=== PATIENT | male | born 1945 | race Caucasian/White ===

== ENCOUNTER 2019-08-10 08:33 | Day surgery (SDC) | payer MEDICARE ==
--- NOTE | 2019-08-08 14:45 | HP ---
DATE OF SURGERY: 08/10/2019 ANTICIPATED PROCEDURE: Port placement. HISTORY OF PRESENT ILLNESS: The patient is requiring access, presents for port. PAST MEDICAL HISTORY: Lung disease. Heart disease. Diabetes. ALLERGIES: IODINE. TAPE. MEDICATIONS: Aricept. Eliquis. Aspirin. Lexapro. Potassium. PAST SURGICAL HISTORY: Colon cancer x2. Umbilical hernia. Pacemaker. Lung resection. SOCIAL HISTORY: Negative. FAMILY HISTORY: Negative. PHYSICAL EXAMINATION: VITAL SIGNS: Normal. CHEST: Clear. COR: Regular. ABDOMEN: Satisfactory. PLAN: Port placement.
[~2019-08-10 08:33] MED LIST: XYLOCAINE 1% HCL 20 ML MDV ONE
[2019-08-10] MEDS ORDERED: VERSED 5 MG/5 ML IV ONE (08:34)
[2019-08-10] MEDS ORDERED: DEMEROL 50 MG SDV IV ONE (08:34)
[2019-08-10] MEDS ORDERED: CEFAZOLIN 2 GM-D5W BAG** 2 GM/50 ML ML IV ONE (08:46)
[2019-08-10] MEDS ORDERED: Lactated Ringers 1,000 ML IV ONE (08:46)
[2019-08-10] MEDS ORDERED: Lactated Ringers 1,000 ML IV SCH (09:00)
[2019-08-10] MEDS ORDERED: CEFAZOLIN 2 GM-D5W BAG** 2 GM/50 ML ML IV SCH (09:00)
[2019-08-10 12:22] VITALS: BP 125/73; PULSE 85; O2SAT 98
--- NOTE | 2019-08-10 15:44 | OP ---
SURGERY DATE/TIME: 08/10/2019 1022 PREOPERATIVE DIAGNOSIS: Inadequate access for chemotherapy. POSTOPERATIVE DIAGNOSIS: Inadequate access for chemotherapy. PROCEDURE: Right tunnel port with fluoroscopic C-arm guidance. SURGEON: Eh Ko M.D. ANESTHESIA: IV sedation 15 minutes monitored. COMPLICATIONS: None. CONDITION: Stable. INDICATION: A patient requiring access. DESCRIPTION OF PROCEDURE: Oximetry kept over 90%. Comfort level satisfactory. Venipuncture obtained right subclavian. The port was fashioned with electrocautery, 1% lidocaine. Catheter assembled at 22 cm. Good aspiration of low pressure venous blood. Flushed and secured with 3-0 Prolene, 3-0 Vicryl, 4-0 Vicryl and Steri-Strips. Fluoro image showed the tip in the right atrium. There is no pneumothorax. Ready to use. The patient tolerated the procedure satisfactorily.
--- NOTE | 2019-08-11 07:37 | XRAY ---
Indication: Port placement. Intraoperative fluoroscopy was provided for 1 second. Single digital spot image submitted for interpretation demonstrates right Port-A-Cath with tip not included in the [id number]. Correlate with intraoperative findings/report.
== END 2019-08-10 12:30 | disposition home or self-care (01) ==
LOC: SDC 08:33
PROVIDERS: ATTEND Surgery
DX: Z95.828 Presence of other vascular implants and grafts (principal); Z85.038 Personal history of other malignant neoplasm of large intestine; J98.4 Other disorders of lung; I51.9 Heart disease, unspecified; E11.9 Type 2 diabetes mellitus without complications; Z79.01 Long term (current) use of anticoagulants; Z79.899 Other long term (current) drug therapy; Z95.0 Presence of cardiac pacemaker
CPT/HCPCS: 36558; 77001; 82962; C1788; J0690; J1642; J2175; J2250

== ENCOUNTER 2020-09-09 11:16 | Inpatient (IN) | payer MEDICARE ==
--- NOTE | 2020-09-09 11:46 | XRAY ---
Indication: Short of breath. Productive cough. Comparison: May 01, 2020. Portable chest demonstrates minimally worsening left mid to lower pleural thickening/effusion with stable left pacemaker and right Port-A-Cath. Remaining heart and right lung unremarkable. Bony thorax intact again with left 6 rib resection.
[2020-09-09 11:48] LABS: Absolute Neutrophil Ct (ANC) 6.18 (1.4-6.9); BASOPHIL % 0.3 % (0.0-0.4); Basophil (Absolute #) 0.03 (0-0.4); Eosinophil % 8.5 % (0.00-5.0); Eosinophil (Absolute #) 0.75 (0-0.5); Hematocrit 43.3 % (42-50); Hemoglobin 13.5 gm/dl (12.5-18.0); Lymphocyte (Absolute #) 1.26 (1.0-4.6); Lymphocytes % 14.3 % (24.0-44.0); Mean Cell Volume 86.4 fl (78-100); Mean Corpuscular Hemoglobin 26.9 pg (26-32); Mean Corpuscular Hgb Concent. 31.2 g/dl (32-36); Mean Platelet Volume 11.1 fl (7.5-11.0); Monocyte (Absolute #) 0.58 (0.0-1.3); Monocytes % 6.6 % (0.0-12.0); Neutrophil % 70.3 % (36.0-66.0); Platelet Count 129 K/mm3 (150-450); Red Blood Count 5.01 M/mm3 (4.1-5.6); Red Cell Distribution Width 16.7 % (11.5-14.0); White Blood Count 8.8 K/mm3 (4.0-10.5)
--- NOTE | 2020-09-09 12:04 | ERPHSYRPT ---
- History of Present Illness Time Seen by Provider: 09/09/20 11:30 Source: patient Exam Limitations: no limitations Patient Subjective Stated Complaint: SOB Triage Nursing Assessment: Patient brought into ED via EMS and transferred to bed per 2. Debbieetn A+O X3. Patient's skin pink, warm and dry. Patient complains of increased SOB for the past few days. Patient wears home O2 at 4 liters at all times. Patient complains of productive cough with thick, yellow sputum. lungs noted to have wheezing throughout. Patient denies pain or discomfort. Physician History: Patient is a 75-year-old male presents to our emergency department via EMS for evaluation of hypoxia. Patient has history of COPD. Patient currently on 4 L nasal cannula daily. Patient states that shortness of breath started a few days ago. Shortness of breath progressively worsened. Patient awoke early this morning with cough and shortness of breath. Nursing staff at [facility] assessed O2 saturation found to be 84%. Patient was treated with a DuoNeb. O2 sat increased to 97%. Nursing staff noted that patient just completed a course of Augmentin and Medrol Dosepak for the same. Patient states he has been experiencing a cough and shortness of breath worsened after coughing. Cough is productive of yellow sputum. Symptoms appear to be progressive. Symptoms are moderate in intensity. No specific worsening improving factors. No associated chest pain. No nausea or vomiting. No fever. Patient voices no other complaints or concerns at this time. Of note patient was Covid positive in June 2020. Patient is currently fully vaccinated against COVID-19. Timing/Duration: day(s) Severity: moderate Modifying Factors: Improves With: nothing Associated Symptoms: shortness of breath, cough, No nausea, No vomiting, No chest pain, No fever, No headaches, No loss of appetite, No malaise, No rash, No syncope, No seizure, No weakness Allergies/Adverse Reactions: Iodinated Contrast Media [IV Dye, Iodine Containing Contrast ] Allergy (Severe, Verified 09/09/20 11:25) Hives iopamidol [From [id number]] Allergy (Severe, Verified 09/09/20 11:25) Rash adhesive tape Allergy (Intermediate, Verified 09/09/20 11:25) Blisters Home Medications: Potassium Chloride [Klor-Con 10] 10 meq PO DAILY 06/24/16 [History] Albuterol Sulfate [Ventolin Hfa] 8 gm IH QIDPRN PRN 11/11/17 [History] Dulaglutide [Trulicity] 0.75 mg SQ WEEKLY 11/11/17 [History] Donepezil HCl 10 mg [Aricept 10 MG] 5 mg PO HS 06/06/19 [History] Escitalopram Oxalate 10 mg [Lexapro 10 MG] 10 mg PO DAILY 06/06/19 [History] Fluticasone/Umeclidin/Vilanter [Trelegy Ellipta 100-62.5-25] 1 each IH DAILY 06/06/19 [History] Insulin Glargine,Hum.rec.anlog [Touhayde Solostar] 300 unit SQ HS 06/06/19 [History] Ipratropium/Albuterol Sulfate [Iprat-Albut 0.5-3(2.5) mg/3 ml] 3 ml IH Q6HPRN PRN 06/06/19 [History] Magnesium Oxide 400 mg [Mag-Ox 400] 400 mg PO DAILY 06/06/19 [History] Multivitamin [Multivitamins] 1 each PO DAILY 07/31/19 [History] Insulin Glargine,Hum.rec.anlog [Toujeo Chang Solostar] 78 unit SQ HS 08/10/19 [History] Hx Tetanus, Diphtheria Vaccination/Date Given: (< 5 YR) Hx Influenza Vaccination/Date Given: Yes Hx Pneumococcal Vaccination/Date Given: No Immunizations Up to Date: Yes Travel Risk - International Travel Have you traveled outside of the country in past 3 weeks: No - Coronavirus Screening Are you exhibiting any of the following symptoms?: Yes Symptoms: Cough: New Onset, Shortness of Breath Close contact with a COVID-19 positive Pt in past 14-21 Days: No - Review of Systems Constitutional: No Symptoms, No Fever, No Chills Eyes: No Symptoms Ears, Nose, & Throat: No Symptoms Respiratory: No Symptoms, No Cough, No Dyspnea Cardiac: No Symptoms, No Chest Pain, No Edema, No Syncope Abdominal/Gastrointestinal: No Symptoms, No Abdominal Pain, No Nausea, No Vomiting, No Diarrhea Genitourinary Symptoms: No Symptoms, No Dysuria Musculoskeletal: No Symptoms, No Back Pain, No Neck Pain Skin: No Symptoms, No Rash Neurological: No Symptoms, No Dizziness, No Focal Weakness, No Sensory Changes Psychological: No Symptoms Endocrine: No Symptoms Hematologic/Lymphatic: No Symptoms Immunological/Allergic: No Symptoms All Other Systems: Reviewed and Negative - Past Medical History Pertinent Past Medical History: Yes Neurological History: Peripheral Neuropathy ENT History: Cataracts Cardiac History: Coronary Artery Disease, Congestive Heart Failure, High Cholesterol, Hypertension Respiratory History: Sleep Apnea, CHF, COPD, Asthma, Bronchitis, Emphysema, Pneumonia Endocrine Medical History: Diabetes Type II Musculoskeletal History: Other GI Medical History: Hemorrhoids, Colorectal Cancer History: No Pertinent History Psycho-Social History: Depression Male Reproductive Disorders: Prostate Problems Other Medical History: hx osteomyelitis. pacemaker. heart stent. left lung collapse- infection with chest tubes,polyp removed with clip placed and gastrophoresis,anemia, - Past Surgical History Past Surgical History: Yes Neuro Surgical History: No Pertinent History Cardiac: Vascular Surgery, Cardiac Stent, Cardiac Catheterization, Pacemaker Respiratory: Other Gastrointestinal: Colon Resection, Hernia Repair Genitourinary: No Pertinent History Musculoskeletal: No Pertinent History Male Surgical History: No Pertinent History Other Surgical History: left eye laser, vein burn left leg, fluid removed from left lung,cataract removed from rt eye,hx. prostate problem,hx colon cancer,upperscope and colonoscopy - Social History Smoking Status: Former smoker How long have you smoked: 38 Exposure to second hand smoke: No Drug Use: none Patient Lives Alone: Yes ([facility]) - Nursing Vital Signs Nursing Vital Signs: Initial Vital Signs Temperature 98.1 F 09/09/20 11:27 Pulse Rate 89 09/09/20 11:27 Respiratory Rate 24 09/09/20 11:27 Blood Pressure 148/70 09/09/20 11:27 O2 Sat by Pulse Oximetry 100 09/09/20 11:27 Pain Scale Pain Intensity 0 - Physical Exam General Appearance: no apparent distress, alert Eye Exam: PERRL/EOMI, eyes nml inspection Ears, Nose, Throat Exam: normal ENT inspection, TMs normal, pharynx normal, moist mucous membranes Neck Exam: normal inspection, non-tender, supple, full range of motion Respiratory Exam: normal breath sounds, wheezing, other (Wheezing observed throughout both lung pedroza.), No respiratory distress, No accessory muscle use Cardiovascular Exam: regular rate/rhythm, normal heart sounds, normal peripheral pulses Gastrointestinal/Abdomen Exam: soft, normal bowel sounds, No tenderness, No mass Back Exam: normal inspection, normal range of motion, No CVA tenderness, No vertebral tenderness Extremity Exam: normal inspection, normal range of motion, pelvis stable Neurologic Exam: alert, oriented x 3, cooperative, normal mood/affect, nml cerebellar function, nml station & gait, sensation nml, No motor deficits Skin Exam: normal color, warm, dry, No rash Lymphatic Exam: No adenopathy SpO2 Interpretation: normal SpO2: 99 O2 Delivery: Room Air - Course Nursing assessment & vital signs reviewed: Yes EKG Interpreted by Me: RATE (89), Sinus Rhythm, NORMAL AXIS, LAFB, NORMAL INTERVALS, Right Bundle Branch Block - Radiology Exams Chest X-ray Interpretation: Teleradiologist Report (No pneumonia, pleural thickening versus pleural effusion.) Ordered Tests: Active Orders 24 hr Category Date Time Status Knife Blade Polisher STAT Care 09/09/20 11:26 Active EKG-ER Only STAT Care 09/09/20 11:25 Active IV Insertion STAT Care 09/09/20 11:25 Active Pulse Oximetry (ED) STAT Care 09/09/20 11:25 Active CHEST 1 VIEW (PORTABLE) Stat Exams 09/09/20 11:26 Completed BLOOD CULTURE Stat Lab 09/09/20 12:45 Received CBC W DIFF Stat Lab 09/09/20 11:26 Completed CMP Stat Lab 09/09/20 11:26 Completed CULTURE,URINE Stat Lab 09/09/20 11:26 Received D-DIMER QUANTITATIVE Stat Lab 09/09/20 15:24 Completed MAGNESIUM Stat Lab 09/09/20 11:26 Completed NT PRO BNP Stat Lab 09/09/20 11:26 Completed TROPONIN Q3H Lab 09/09/20 11:26 Completed TROPONIN Q3H Lab 09/09/20 14:51 Completed TROPONIN Q3H Lab 09/09/20 17:30 Ordered TROPONIN Q3H Lab 09/09/20 20:30 Ordered TROPONIN Q3H Lab 09/09/20 23:30 Ordered UA W/RFX UR CULTURE Stat Lab 09/09/20 11:26 Completed Respiratory MDI UD RT 09/09/20 13:55 Active Respiratory Therapy Assessment DAILY RT 09/09/20 13:50 Active Transfer Order Routine Transfer 09/09/20 Ordered Medication Summary Generic Name Dose Route Start Last Admin Trade Name Freq PRN Reason Stop Dose Admin Albuterol Sulfate 4 puff 09/09/20 12:49 09/09/20 13:30 Ventolin Common Canister IH 10/09/20 12:48 4 puff Q4H PRN PRN Administration SHORTNESS OF BREATH/WHEEZING Discontinued Medications Generic Name Dose Route Start Last Admin Trade Name Freq PRN Reason Stop Dose Admin Azithromycin 500 mg in 250 mls @ 250 mls/hr 09/09/20 14:58 09/09/20 16:10 Zithromax 500 Mg/ 250 Ml Nacl Premix IV 09/09/20 15:57 250 mls/hr STAT STA 250 mls/hr Administration Ceftriaxone Sodium/Dextrose 2 g in 50 mls @ 100 mls/hr 09/09/20 14:58 09/09/20 16:58 Rocephin 2 Gm-D5w 50ml Bag IV 09/09/20 15:27 Infused STAT STA Infusion Ceftriaxone Sodium/Dextrose Confirm 09/09/20 15:39 Rocephin 2 Gm-D5w 50ml Bag Administered 09/09/20 15:40 Dose 2 g in 50 mls @ ud IV .STK-MED ONE Azithromycin Confirm 09/09/20 16:07 Zithromax 500 Mg/ 250 Ml Nacl Premix Administered 09/09/20 16:08 Dose 500 mg in 250 mls @ ud IV .STK-MED ONE Methylprednisolone Sodium Succinate 125 mg 09/09/20 12:18 09/09/20 12:24 Solu-Medrol 125 Mg IV 09/09/20 12:19 125 mg STAT ONE Administration Methylprednisolone Sodium Succinate Confirm 09/09/20 12:23 Solu-Medrol 125 Mg Administered 09/09/20 12:24 Dose 125 mg .ROUTE .STK-MED ONE Lab/Rad Data: Laboratory Result Diagrams 09/09/20 11:26 09/09/20 11:26 Laboratory Results 09/09/20 09/09/20 09/09/20 Range/Units 15:40 15:24 14:51 WBC (4.0-10.5) K/mm3 RBC (4.1-5.6) M/mm3 Hgb (12.5-18.0) gm/dl Hct (42-50) % MCV (78-100) fl MCH (26-32) pg MCHC (32-36) g/dl RDW (11.5-14.0) % Plt Count (150-450) K/mm3 MPV (7.5-11.0) fl Gran % (36.0-66.0) % Eos # (Auto) (0-0.5) Absolute Lymphs (auto) (1.0-4.6) Absolute Monos (auto) (0.0-1.3) Lymphocytes % (24.0-44.0) % Monocytes % (0.0-12.0) % Eosinophils % (0.00-5.0) % Basophils % (0.0-0.4) % Absolute Granulocytes (1.4-6.9) Basophils # (0-0.4) D-Dimer 608 H* (215-500) ng/mL Sodium (137-145) mmol/L Potassium (3.5-5.1) mmol/L Chloride (98-107) mmol/L Carbon Dioxide (22-30) mmol/L Anion Gap (5-15) MEQ/L BUN (9-20) mg/dL Creatinine (0.66-1.25) mg/dL Estimated GFR ML/MIN Glucose (74-106) mg/dL Calcium (8.4-10.2) mg/dL Magnesium (1.6-2.3) mg/dL Total Bilirubin (0.2-1.3) mg/dL AST (17-59) U/L ALT (0-50) U/L Alkaline Phosphatase (38-126) U/L Troponin I < 0.012 (0.000-0.034) ng/mL NT-Pro-B Natriuret Pep (0-900) pg/mL Serum Total Protein (6.3-8.2) g/dL Albumin (3.5-5.0) g/dL Urine Color (YELLOW) Urine Appearance (CLEAR) Urine pH (5-6) Ur Specific Callery (1.005-1.025) Urine Protein (Negative) Urine Ketones (NEGATIVE) Urine Blood (0-5) Clyde/ul Urine Nitrite (NEGATIVE) Urine Bilirubin (NEGATIVE) Urine Urobilinogen (0-1) mg/dL Ur Leukocyte Esterase (NEGATIVE) Urine WBC (Auto) (0-5) /HPF Urine RBC (Auto) (0-2) /HPF U Epithel Cells (Auto) (FEW) /HPF Urine Bacteria (Auto) (NEGATIVE) /HPF Urine Mucus (Auto) (NEGATIVE) /HPF Urine Culture Reflexed (NO) Urine Glucose (NEGATIVE) mg/dL Influenza Type A Ag NEGATIVE (NEGATIVE) Influenza Type B Ag NEGATIVE (NEGATIVE) RSV (PCR) NEGATIVE (Negative) SARS-CoV-2 (PCR) NEGATIVE (NEGATIVE) 09/09/20 09/09/20 09/09/20 Range/Units 11:26 11:26 11:26 WBC (4.0-10.5) K/mm3 RBC (4.1-5.6) M/mm3 Hgb (12.5-18.0) gm/dl Hct (42-50) % MCV (78-100) fl MCH (26-32) pg MCHC (32-36) g/dl RDW (11.5-14.0) % Plt Count (150-450) K/mm3 MPV (7.5-11.0) fl Gran % (36.0-66.0) % Eos # (Auto) (0-0.5) Absolute Lymphs (auto) (1.0-4.6) Absolute Monos (auto) (0.0-1.3) Lymphocytes % (24.0-44.0) % Monocytes % (0.0-12.0) % Eosinophils % (0.00-5.0) % Basophils % (0.0-0.4) % Absolute Granulocytes (1.4-6.9) Basophils # (0-0.4) D-Dimer (215-500) ng/mL Sodium 136 L (137-145) mmol/L Potassium 3.9 (3.5-5.1) mmol/L Chloride 102 (98-107) mmol/L Carbon Dioxide 31 H (22-30) mmol/L Anion Gap 7.8 (5-15) MEQ/L BUN 14 (9-20) mg/dL Creatinine 0.69 (0.66-1.25) mg/dL Estimated GFR > 60.0 ML/MIN Glucose 149 H (74-106) mg/dL Calcium 8.4 (8.4-10.2) mg/dL Magnesium 2.0 (1.6-2.3) mg/dL Total Bilirubin 0.50 (0.2-1.3) mg/dL AST 18 (17-59) U/L ALT 9 (0-50) U/L Alkaline Phosphatase 124 (38-126) U/L Troponin I < 0.012 (0.000-0.034) ng/mL NT-Pro-B Natriuret Pep 94.0 (0-900) pg/mL Serum Total Protein 6.2 L (6.3-8.2) g/dL Albumin 3.5 (3.5-5.0) g/dL Urine Color YELLOW (YELLOW) Urine Appearance SLIGHTLY CLOUDY (CLEAR) Urine pH 5.0 (5-6) Ur Specific Callery 1.020 (1.005-1.025) Urine Protein 100 (Negative) Urine Ketones NEGATIVE (NEGATIVE) Urine Blood NEGATIVE (0-5) Clyde/ul Urine Nitrite NEGATIVE (NEGATIVE) Urine Bilirubin NEGATIVE (NEGATIVE) Urine Urobilinogen NEGATIVE (0-1) mg/dL Ur Leukocyte Esterase SMALL (NEGATIVE) Urine WBC (Auto) 6-10 (0-5) /HPF Urine RBC (Auto) 6-10 (0-2) /HPF U Epithel Cells (Auto) RARE (FEW) /HPF Urine Bacteria (Auto) RARE (NEGATIVE) /HPF Urine Mucus (Auto) SLIGHT (NEGATIVE) /HPF Urine Culture Reflexed YES (NO) Urine Glucose 50 (NEGATIVE) mg/dL Influenza Type A Ag (NEGATIVE) Influenza Type B Ag (NEGATIVE) RSV (PCR) (Negative) SARS-CoV-2 (PCR) (NEGATIVE) 09/09/20 Range/Units 11:26 WBC 8.8 (4.0-10.5) K/mm3 RBC 5.01 (4.1-5.6) M/mm3 Hgb 13.5 (12.5-18.0) gm/dl Hct 43.3 (42-50) % MCV 86.4 (78-100) fl MCH 26.9 (26-32) pg MCHC 31.2 L (32-36) g/dl RDW 16.7 H (11.5-14.0) % Plt Count 129 L (150-450) K/mm3 MPV 11.1 H (7.5-11.0) fl Gran % 70.3 H (36.0-66.0) % Eos # (Auto) 0.75 H (0-0.5) Absolute Lymphs (auto) 1.26 (1.0-4.6) Absolute Monos (auto) 0.58 (0.0-1.3) Lymphocytes % 14.3 L (24.0-44.0) % Monocytes % 6.6 (0.0-12.0) % Eosinophils % 8.5 H (0.00-5.0) % Basophils % 0.3 (0.0-0.4) % Absolute Granulocytes 6.18 (1.4-6.9) Basophils # 0.03 (0-0.4) D-Dimer (215-500) ng/mL Sodium (137-145) mmol/L Potassium (3.5-5.1) mmol/L Chloride (98-107) mmol/L Carbon Dioxide (22-30) mmol/L Anion Gap (5-15) MEQ/L BUN (9-20) mg/dL Creatinine (0.66-1.25) mg/dL Estimated GFR ML/MIN Glucose (74-106) mg/dL Calcium (8.4-10.2) mg/dL Magnesium (1.6-2.3) mg/dL Total Bilirubin (0.2-1.3) mg/dL AST (17-59) U/L ALT (0-50) U/L Alkaline Phosphatase (38-126) U/L Troponin I (0.000-0.034) ng/mL NT-Pro-B Natriuret Pep (0-900) pg/mL Serum Total Protein (6.3-8.2) g/dL Albumin (3.5-5.0) g/dL Urine Color (YELLOW) Urine Appearance (CLEAR) Urine pH (5-6) Ur Specific Callery (1.005-1.025) Urine Protein (Negative) Urine Ketones (NEGATIVE) Urine Blood (0-5) Clyde/ul Urine Nitrite (NEGATIVE) Urine Bilirubin (NEGATIVE) Urine Urobilinogen (0-1) mg/dL Ur Leukocyte Esterase (NEGATIVE) Urine WBC (Auto) (0-5) /HPF Urine RBC (Auto) (0-2) /HPF U Epithel Cells (Auto) (FEW) /HPF Urine Bacteria (Auto) (NEGATIVE) /HPF Urine Mucus (Auto) (NEGATIVE) /HPF Urine Culture Reflexed (NO) Urine Glucose (NEGATIVE) mg/dL Influenza Type A Ag (NEGATIVE) Influenza Type B Ag (NEGATIVE) RSV (PCR) (Negative) SARS-CoV-2 (PCR) (NEGATIVE) - Progress Progress: improved Progress Note: 09/09/20 17:07 Patient reassessed. He feels much better. Wheezing significantly improved. Patient has no labored breathing at this time. Chest x-ray negative for acute pathology. Case discussed with Dr. Cook covering Dr. Espana. Dr. Cook accepts admission to observation. However she request to place patient under Dr. Espana as accepting physician. Plan of care discussed with patient. He agrees to admission at [facility] for further evaluation. Discussed with : Kip Will see patient in: hospital (observation) Counseled pt/family regarding: lab results, diagnosis, rad results - Departure Departure Disposition: Observation Clinical Impression: Hypoxia, Productive cough, SOB (shortness of breath), Wheezing, Pleural effusion, COPD exacerbation, Thrombocytopenia Condition: Stable Critical Care Time: No Referrals: CORIN RAVI [Primary Care Provider] - Instructions: Chronic Obstructive Pulmonary Disease
[2020-09-09 12:09] LABS: ALBUMIN 3.5 g/dL (3.5-5.0); ALKALINE PHOSPHATASE 124 U/L (38-126); ANION GAP 7.8 MEQ/L (5-15); BLOOD UREA NITROGEN 14 mg/dL (9-20); CHLORIDE 102 mmol/L (98-107); Calcium 8.4 mg/dL (8.4-10.2); Carbon Dioxide 31 mmol/L (22-30); Creatinine 1 0.69 mg/dL (0.66-1.25); EST GLOMERULAR FILTRATION RATE > 60.0 ML/MIN; Glucose 149 mg/dL (74-106); Potassium 3.9 mmol/L (3.5-5.1); SGOT/AST 18 U/L (17-59); SGPT/ALT 9 U/L (0-50); SODIUM 136 mmol/L (137-145); Total Protein 6.2 g/dL (6.3-8.2)
[2020-09-09] MEDS ORDERED: solu-MEDROL 125 MG IV ONE (12:18)
[2020-09-09 12:20] LABS: Appearance SLIGHTLY CLOUDY (CLEAR); Bacteria RARE /HPF (NEGATIVE); Bilirubin NEGATIVE (NEGATIVE); Blood NEGATIVE Ery/ul (0-5); Epithelial Cells RARE /HPF (FEW); Glucose 50 mg/dL (NEGATIVE); Ketones NEGATIVE (NEGATIVE); Leukocyte Esterase SMALL (NEGATIVE); Mucus SLIGHT /HPF (NEGATIVE); Nitrite NEGATIVE (NEGATIVE); Protein,Urine Dip 100 (Negative); Urobilinogen NEGATIVE mg/dL (0-1)
[2020-09-09] MEDS ORDERED: solu-MEDROL 125 MG ONE (12:23)
[2020-09-09] MEDS ORDERED: VENTOLIN COMMON CANISTER IH PRN (12:49)
[2020-09-09] MEDS ORDERED: Zithromax 500 MG/ 250 ML NaCl Premix 500 MG/250 ML IVPB IV STA (14:58)
[2020-09-09] MEDS ORDERED: ROCEPHIN 2 Gm-D5w 50ML BAG** 2 G/50 ML IVPB IV STA (14:58)
[2020-09-09] MEDS ORDERED: ROCEPHIN 2 Gm-D5w 50ML BAG** 2 G/50 ML IVPB IV ONE (15:39)
[2020-09-09] MEDS ORDERED: Zithromax 500 MG/ 250 ML NaCl Premix 500 MG/250 ML IVPB IV ONE (16:07)
[2020-09-09 16:19] LABS: INFLUENZA A NEGATIVE (NEGATIVE); INFLUENZA B NEGATIVE (NEGATIVE); RESPIRATORY SYNCTIAL VIRUS NEGATIVE (Negative)
[2020-09-09] MEDS ORDERED: DUONEB 0.5-3 MG/3 ml Neb IH ONE (17:43)
[2020-09-09] MEDS: DUONEB 0.5-3 MG/3 ml Neb IH SCH (17:47)
[2020-09-09] MEDS ORDERED: PROVENTIL 2.5 MG/3 ML NEB IH SCH (19:00)
[2020-09-09] MEDS: solu-MEDROL 125 MG IV SCH ×2 (19:58→23:48)
[2020-09-09] MEDS ORDERED: TYLENOL 325 MG PO PRN (21:50)
[2020-09-09] MEDS ORDERED: MILK OF MAGNESIA 30 ML PO PRN (21:51)
[2020-09-09] MEDS ORDERED: Lantus Insulin SQ SCH (22:00)
[2020-09-09] MEDS: FEOSOL 325 MG PO SCH (22:04)
[2020-09-09] MEDS: Aricept 10 MG PO SCH (22:04)
[2020-09-09] MEDS: ELIQUIS 2.5 MG TABLET PO SCH (22:04)
[2020-09-09] MEDS: HUMULIN R SQ PRN (22:05)
[2020-09-10] MEDS: solu-MEDROL 125 MG IV SCH ×4 (05:21→23:02)
[2020-09-10 05:39] LABS: ALBUMIN 3.5 g/dL (3.5-5.0); ALKALINE PHOSPHATASE 132 U/L (38-126); ANION GAP 12.4 MEQ/L (5-15); BLOOD UREA NITROGEN 18 mg/dL (9-20); CHLORIDE 97 mmol/L (98-107); Calcium 8.5 mg/dL (8.4-10.2); Carbon Dioxide 31 mmol/L (22-30); Creatinine 1 0.62 mg/dL (0.66-1.25); EST GLOMERULAR FILTRATION RATE > 60.0 ML/MIN; Glucose 280 mg/dL (74-106); Potassium 4.2 mmol/L (3.5-5.1); SGOT/AST 17 U/L (17-59); SGPT/ALT 10 U/L (0-50); SODIUM 135 mmol/L (137-145); Total Protein 6.3 g/dL (6.3-8.2)
[2020-09-10] MEDS ORDERED: PATIENT OWN MEDICATION IH SCH ×2 (07:00→10:00)
[2020-09-10] MEDS ORDERED: DUONEB 0.5-3 MG/3 ml Neb IH ONE (07:19)
[2020-09-10] MEDS: DUONEB 0.5-3 MG/3 ml Neb IH SCH ×4 (07:20→18:32)
[2020-09-10] MEDS: PATIENT OWN MEDICATION IH SCH (07:20)
[2020-09-10] MEDS: HUMULIN R SQ PRN ×4 (07:57→21:22)
--- NOTE | 2020-09-10 08:49 | PCM.HP ---
History of Present Illness - Chief Complaint Chief Complaint: COPD exacerbation History of Present Illness: is a 75 year old male pt of Dr. Zuniga with PMHx COPD, HTN, chronic hypoxemic respiratory failure, diabetes mellitus, and mild cognitive impairment who was admitted through ER with COPD exacerbation. He is at [facility] for rehab, recently finisehd augmentin and medrol dosepak for COPD exacerbation, and had 3d of increased SOB and cough productive of yellow sputum. He was also covid + in Jun 2020, but his chart notes he is fully vaccinated. Pt has hx of colon cancer x 2. He has a port-A-cath apparently just due to frequent hospital admissions. Pacemaker approx 2-[address] Novoa and is on Eliquis but denies hx of DVT/afib. In ER his CXR showed minimally worsening L mid-lower lobe pleural thickening/effusion. His d-dimer was 608 but he is allergic to IV dye (and as mentioned is on Eliquis) so no CTA chest was done. Troponins neg x 3. Flu and covid negative. Today he states he is feeling much better, only a little short of breath with trips to the bathroom. Mercedes po. - Review of Systems Respiratory: Cough, Short Of Breath, Wheezing Cardiac: Edema (intermittent, LE) Abdominal/Gastrointestinal: Diarrhea (resolved), Melena (intermittently) Neurological: Dizziness (lightheaded at times), Other (syncope 9 mo ago which was worked up) Psychological: No Depression, No Suicidal Ideations Hematologic/Lymphatic: No Blood Clots Medications & Allergies Home Medications: Home Medication List Potassium Chloride [Klor-Con 10] 10 meq PO DAILY 12/20/15 [History Confirmed 09/09/20] Donepezil HCl 10 mg [Aricept 10 MG] 10 mg PO HS 06/06/19 [History Confirmed 09/09/20] Escitalopram Oxalate 10 mg [Lexapro 10 MG] 20 mg PO DAILY 06/06/19 [History Confirmed 09/09/20] Acetaminophen 325 mg [Tylenol 325 mg] 650 mg PO Q4HPRN PRN 09/09/20 [History Confirmed 09/09/20] Albuterol Sulfate [Albuterol Sulfate Hfa] 2 puff IH QID 09/09/20 [History Confirmed 09/09/20] Albuterol/Ipratropium 3ml Neb* [DUONEB 0.5-3 MG/3 ml Neb] 1 vial IH BID 09/09/20 [History Confirmed 09/09/20] Apixaban [Eliquis] 5 mg PO BID 09/09/20 [History Confirmed 09/09/20] Cholestyramine/Aspartame [Cholestyramine Light Packet] 4 gm PO DAILY 09/09/20 [History Confirmed 09/09/20] Ferrous Sulfate 325 mg [Feosol 325 mg] 325 mg PO BID 09/09/20 [History Confirmed 09/09/20] Insulin Aspart [Novolog] 100 unit SQ UD 09/09/20 [History Confirmed 09/09/20] Insulin Glargine,Hum.rec.anlog [Basaglar Kwikpen U-100] 23 unit SQ QHS 09/09/20 [History Confirmed 09/09/20] Magnesium Hydroxide 30 ml [Milk of Magnesia 30 ml] 30 ml PO UD PRN 09/09/20 [History Confirmed 09/09/20] Memantine HCl 5 mg [Namenda 5 MG] 5 mg PO DAILY 09/09/20 [History Confirmed 09/09/20] Nystatin 100,000 unit TOP BID 09/09/20 [History Confirmed 09/09/20] Sodium Phosphate,Pine-Dibasic [Fleet Enema] 133 ml RC UD PRN 09/09/20 [History Confirmed 09/09/20] Allergies/Adverse Reactions: Allergies Allergy/AdvReac Type Severity Reaction Status Date / Time Iodinated Contrast Media Allergy Severe Hives Verified 09/09/20 18:15 [IV Dye, Iodine Containing Contrast ] iopamidol [From Isovue-128] Allergy Severe Rash Verified 09/09/20 18:15 adhesive tape Allergy Intermediate Blisters Verified 09/09/20 18:15 - Past Medical History Past Medical History: Yes Neurological History: Dementia, Peripheral Neuropathy, TIA ENT History: Cataracts Cardiac History: Coronary Artery Disease, Congestive Heart Failure, High Cholesterol, Hypertension Respiratory History: Sleep Apnea, CHF, COPD, Asthma, Bronchitis, Emphysema, Pneumonia Endocrine Medical History: Diabetes Type II Musculoskelatal History: Other GI Medical History: Hemorrhoids, Colorectal Cancer History: No Pertinent History Pyscho-Social History: Anxiety, Depression Male Reproductive Disorders: Prostate Problems Comment: hx osteomyelitis. pacemaker. heart stent. left lung collapse- infection with chest tubes,polyp removed with clip placed and gastrophoresis,anemia, - Past Surgical History Past Surgical History: Yes Neuro Surgical History: No Pertinent History Cardiac History: Vascular Surgery, Cardiac Stent, Cardiac Catheterization, Pacemaker Respiratory Surgery: Other GI Surgical History: Colon Resection, Hernia Repair Genitourinary Surgical Hx: No Pertinent History Musculskeletal Surgical Hx: No Pertinent History Male Surgical History: No Pertinent History Other Surgical History: left eye laser, vein burn left leg, fluid removed from left lung,upperscope and colonoscopy, port placement - Social History Smoking Status: Former smoker How long have you smoked: 38 Exposure to second hand smoke: No Alcohol: None Drug Use: none - Physical Exam Vital Signs: Vital Signs - 24 hr Temp Pulse Resp BP Pulse Ox 09/10/20 08:00 97.7 F 88 21 129/58 95 09/10/20 07:23 86 16 94 L 09/10/20 04:00 98 F 89 23 144/64 96 09/10/20 00:00 98.3 F 95 H 22 145/67 97 09/09/20 20:43 92 H 20 96 09/09/20 20:00 98.4 F 96 H 18 151/69 97 09/09/20 18:31 98.0 F 95 H 20 154/80 96 09/09/20 17:48 95 H 20 96 09/09/20 17:09 99 09/09/20 17:00 98.0 F 99 H 20 154/80 98 09/09/20 16:55 92 H 18 154/70 97 09/09/20 15:28 90 17 163/85 99 09/09/20 14:38 89 21 159/75 98 09/09/20 13:30 86 16 95 09/09/20 13:10 82 21 138/68 93 L 09/09/20 12:28 87 28 H 159/80 100 09/09/20 11:44 99 09/09/20 11:27 98.1 F 89 24 148/70 100 Oxygen-Last 24 hours Oxygen Flowrate (L/min)-RT 4 General Appearance: no apparent distress, alert Neurologic Exam: oriented x 3, cooperative Eye Exam: eyes nml inspection Ears, Nose, Throat Exam: moist mucous membranes Neck Exam: normal inspection, non-tender, No lymphadenopathy Respiratory Exam: lungs clear, diminished breath sounds (good air exchange), prolonged expirations, No crackles/rales, No rhonchi, No wheezing Cardiovascular Exam: regular rate/rhythm, normal heart sounds, No murmur Gastrointestinal/Abdomen Exam: soft, normal bowel sounds, No tenderness, No distention, No mass, No guarding, No rebound Back Exam: normal inspection, No CVA tenderness, No rash Extremity Exam: normal inspection, No pedal edema, No swelling Skin Exam: normal color, warm, dry, No rash Results - Labs Lab/Micro Results: Lab Results-Last 24 Hours 09/09/20 09/09/20 09/09/20 Range/Units 11:26 11:26 11:26 WBC 8.8 (4.0-10.5) K/mm3 RBC 5.01 (4.1-5.6) M/mm3 Hgb 13.5 (12.5-18.0) gm/dl Hct 43.3 (42-50) % MCV 86.4 (78-100) fl MCH 26.9 (26-32) pg MCHC 31.2 L (32-36) g/dl RDW 16.7 H (11.5-14.0) % Plt Count 129 L (150-450) K/mm3 MPV 11.1 H (7.5-11.0) fl Gran % 70.3 H (36.0-66.0) % Eos # (Auto) 0.75 H (0-0.5) Absolute Lymphs (auto) 1.26 (1.0-4.6) Absolute Monos (auto) 0.58 (0.0-1.3) Lymphocytes % 14.3 L (24.0-44.0) % Monocytes % 6.6 (0.0-12.0) % Eosinophils % 8.5 H (0.00-5.0) % Basophils % 0.3 (0.0-0.4) % Absolute Granulocytes 6.18 (1.4-6.9) Basophils # 0.03 (0-0.4) D-Dimer (215-500) ng/mL Sodium 136 L (137-145) mmol/L Potassium 3.9 (3.5-5.1) mmol/L Chloride 102 (98-107) mmol/L Carbon Dioxide 31 H (22-30) mmol/L Anion Gap 7.8 (5-15) MEQ/L BUN 14 (9-20) mg/dL Creatinine 0.69 (0.66-1.25) mg/dL Estimated GFR > 60.0 ML/MIN Glucose 149 H (74-106) mg/dL POC Glucometer (74 to 106) mg/dL Hemoglobin A1c (4.5-6.0) % Calcium 8.4 (8.4-10.2) mg/dL Magnesium 2.0 (1.6-2.3) mg/dL Total Bilirubin 0.50 (0.2-1.3) mg/dL AST 18 (17-59) U/L ALT 9 (0-50) U/L Alkaline Phosphatase 124 (38-126) U/L Troponin I (0.000-0.034) ng/mL NT-Pro-B Natriuret Pep 94.0 (0-900) pg/mL Serum Total Protein 6.2 L (6.3-8.2) g/dL Albumin 3.5 (3.5-5.0) g/dL Urine Color YELLOW (YELLOW) Urine Appearance SLIGHTLY CLOUDY (CLEAR) Urine pH 5.0 (5-6) Ur Specific [place] 1.020 (1.005-1.025) Urine Protein 100 (Negative) Urine Ketones NEGATIVE (NEGATIVE) Urine Blood NEGATIVE (0-5) [place]/ul Urine Nitrite NEGATIVE (NEGATIVE) Urine Bilirubin NEGATIVE (NEGATIVE) Urine Urobilinogen NEGATIVE (0-1) mg/dL Ur Leukocyte Esterase SMALL (NEGATIVE) Urine WBC (Auto) 6-10 (0-5) /HPF Urine RBC (Auto) 6-10 (0-2) /HPF U Epithel Cells (Auto) RARE (FEW) /HPF Urine Bacteria (Auto) RARE (NEGATIVE) /HPF Urine Mucus (Auto) SLIGHT (NEGATIVE) /HPF Urine Culture Reflexed YES (NO) Urine Glucose 50 (NEGATIVE) mg/dL Influenza Type A Ag (NEGATIVE) Influenza Type B Ag (NEGATIVE) RSV (PCR) (Negative) SARS-CoV-2 (PCR) (NEGATIVE) 03/15/21 03/15/21 03/15/21 Range/Units 11:26 14:51 15:24 WBC (4.0-10.5) K/mm3 RBC (4.1-5.6) M/mm3 Hgb (12.5-18.0) gm/dl Hct (42-50) % MCV (78-100) fl MCH (26-32) pg MCHC (32-36) g/dl RDW (11.5-14.0) % Plt Count (150-450) K/mm3 MPV (7.5-11.0) fl Gran % (36.0-66.0) % Eos # (Auto) (0-0.5) Absolute Lymphs (auto) (1.0-4.6) Absolute Monos (auto) (0.0-1.3) Lymphocytes % (24.0-44.0) % Monocytes % (0.0-12.0) % Eosinophils % (0.00-5.0) % Basophils % (0.0-0.4) % Absolute Granulocytes (1.4-6.9) Basophils # (0-0.4) D-Dimer 608 H* (215-500) ng/mL Sodium (137-145) mmol/L Potassium (3.5-5.1) mmol/L Chloride (98-107) mmol/L Carbon Dioxide (22-30) mmol/L Anion Gap (5-15) MEQ/L BUN (9-20) mg/dL Creatinine (0.66-1.25) mg/dL Estimated GFR ML/MIN Glucose (74-106) mg/dL POC Glucometer (74 to 106) mg/dL Hemoglobin A1c (4.5-6.0) % Calcium (8.4-10.2) mg/dL Magnesium (1.6-2.3) mg/dL Total Bilirubin (0.2-1.3) mg/dL AST (17-59) U/L ALT (0-50) U/L Alkaline Phosphatase (38-126) U/L Troponin I < 0.012 < 0.012 (0.000-0.034) ng/mL NT-Pro-B Natriuret Pep (0-900) pg/mL Serum Total Protein (6.3-8.2) g/dL Albumin (3.5-5.0) g/dL Urine Color (YELLOW) Urine Appearance (CLEAR) Urine pH (5-6) Ur Specific [place] (1.005-1.025) Urine Protein (Negative) Urine Ketones (NEGATIVE) Urine Blood (0-5) Clyde/ul Urine Nitrite (NEGATIVE) Urine Bilirubin (NEGATIVE) Urine Urobilinogen (0-1) mg/dL Ur Leukocyte Esterase (NEGATIVE) Urine WBC (Auto) (0-5) /HPF Urine RBC (Auto) (0-2) /HPF U Epithel Cells (Auto) (FEW) /HPF Urine Bacteria (Auto) (NEGATIVE) /HPF Urine Mucus (Auto) (NEGATIVE) /HPF Urine Culture Reflexed (NO) Urine Glucose (NEGATIVE) mg/dL Influenza Type A Ag (NEGATIVE) Influenza Type B Ag (NEGATIVE) RSV (PCR) (Negative) SARS-CoV-2 (PCR) (NEGATIVE) 09/09/20 09/09/20 09/09/20 Range/Units 15:40 17:40 18:56 WBC (4.0-10.5) K/mm3 RBC (4.1-5.6) M/mm3 Hgb (12.5-18.0) gm/dl Hct (42-50) % MCV (78-100) fl MCH (26-32) pg MCHC (32-36) g/dl RDW (11.5-14.0) % Plt Count (150-450) K/mm3 MPV (7.5-11.0) fl Gran % (36.0-66.0) % Eos # (Auto) (0-0.5) Absolute Lymphs (auto) (1.0-4.6) Absolute Monos (auto) (0.0-1.3) Lymphocytes % (24.0-44.0) % Monocytes % (0.0-12.0) % Eosinophils % (0.00-5.0) % Basophils % (0.0-0.4) % Absolute Granulocytes (1.4-6.9) Basophils # (0-0.4) D-Dimer (215-500) ng/mL Sodium (137-145) mmol/L Potassium (3.5-5.1) mmol/L Chloride (98-107) mmol/L Carbon Dioxide (22-30) mmol/L Anion Gap (5-15) MEQ/L BUN (9-20) mg/dL Creatinine (0.66-1.25) mg/dL Estimated GFR ML/MIN Glucose (74-106) mg/dL POC Glucometer (74 to 106) mg/dL Hemoglobin A1c 6.51 H (4.5-6.0) % Calcium (8.4-10.2) mg/dL Magnesium (1.6-2.3) mg/dL Total Bilirubin (0.2-1.3) mg/dL AST (17-59) U/L ALT (0-50) U/L Alkaline Phosphatase (38-126) U/L Troponin I < 0.012 (0.000-0.034) ng/mL NT-Pro-B Natriuret Pep (0-900) pg/mL Serum Total Protein (6.3-8.2) g/dL Albumin (3.5-5.0) g/dL Urine Color (YELLOW) Urine Appearance (CLEAR) Urine pH (5-6) Ur Specific [place] (1.005-1.025) Urine Protein (Negative) Urine Ketones (NEGATIVE) Urine Blood (0-5) [place]/ul Urine Nitrite (NEGATIVE) Urine Bilirubin (NEGATIVE) Urine Urobilinogen (0-1) mg/dL Ur Leukocyte Esterase (NEGATIVE) Urine WBC (Auto) (0-5) /HPF Urine RBC (Auto) (0-2) /HPF U Epithel Cells (Auto) (FEW) /HPF Urine Bacteria (Auto) (NEGATIVE) /HPF Urine Mucus (Auto) (NEGATIVE) /HPF Urine Culture Reflexed (NO) Urine Glucose (NEGATIVE) mg/dL Influenza Type A Ag NEGATIVE (NEGATIVE) Influenza Type B Ag NEGATIVE (NEGATIVE) RSV (PCR) NEGATIVE (Negative) SARS-CoV-2 (PCR) NEGATIVE (NEGATIVE) 09/09/20 09/10/20 09/10/20 Range/Units 21:46 04:33 07:23 WBC (4.0-10.5) K/mm3 RBC (4.1-5.6) M/mm3 Hgb (12.5-18.0) gm/dl Hct (42-50) % MCV (78-100) fl MCH (26-32) pg MCHC (32-36) g/dl RDW (11.5-14.0) % Plt Count (150-450) K/mm3 MPV (7.5-11.0) fl Gran % (36.0-66.0) % Eos # (Auto) (0-0.5) Absolute Lymphs (auto) (1.0-4.6) Absolute Monos (auto) (0.0-1.3) Lymphocytes % (24.0-44.0) % Monocytes % (0.0-12.0) % Eosinophils % (0.00-5.0) % Basophils % (0.0-0.4) % Absolute Granulocytes (1.4-6.9) Basophils # (0-0.4) D-Dimer (215-500) ng/mL Sodium 135 L (137-145) mmol/L Potassium 4.2 (3.5-5.1) mmol/L Chloride 97 L (98-107) mmol/L Carbon Dioxide 31 H (22-30) mmol/L Anion Gap 12.4 (5-15) MEQ/L BUN 18 (9-20) mg/dL Creatinine 0.62 L (0.66-1.25) mg/dL Estimated GFR > 60.0 ML/MIN Glucose 280 H (74-106) mg/dL POC Glucometer 353 H 275 H (74 to 106) mg/dL Hemoglobin A1c (4.5-6.0) % Calcium 8.5 (8.4-10.2) mg/dL Magnesium (1.6-2.3) mg/dL Total Bilirubin 0.80 (0.2-1.3) mg/dL AST 17 (17-59) U/L ALT 10 (0-50) U/L Alkaline Phosphatase 132 H (38-126) U/L Troponin I (0.000-0.034) ng/mL NT-Pro-B Natriuret Pep (0-900) pg/mL Serum Total Protein 6.3 (6.3-8.2) g/dL Albumin 3.5 (3.5-5.0) g/dL Urine Color (YELLOW) Urine Appearance (CLEAR) Urine pH (5-6) Ur Specific [place] (1.005-1.025) Urine Protein (Negative) Urine Ketones (NEGATIVE) Urine Blood (0-5) [place]/ul Urine Nitrite (NEGATIVE) Urine Bilirubin (NEGATIVE) Urine Urobilinogen (0-1) mg/dL Ur Leukocyte Esterase (NEGATIVE) Urine WBC (Auto) (0-5) /HPF Urine RBC (Auto) (0-2) /HPF U Epithel Cells (Auto) (FEW) /HPF Urine Bacteria (Auto) (NEGATIVE) /HPF Urine Mucus (Auto) (NEGATIVE) /HPF Urine Culture Reflexed (NO) Urine Glucose (NEGATIVE) mg/dL Influenza Type A Ag (NEGATIVE) Influenza Type B Ag (NEGATIVE) RSV (PCR) (Negative) SARS-CoV-2 (PCR) (NEGATIVE) Microbiology 09/09/20 11:26 Urine Culture - Preliminary Urine, Void NO GROWTH TO DATE Accuchecks Date 09/10/20 Date 09/09/20 Time 21:46 - Radiology Impressions Radiology Exams & Impressions: Radiology Procedures Category Date Time Status CHEST 1 VIEW (PORTABLE) Stat Exams 09/09/20 11:26 Completed - Other Procedures and Tests Respiratory Therapy 09/09/20 13:50 Respiratory Therapy Assessment DAILY 09/09/20 17:48 Oxygen NASAL CANNULA 4 lpm Assessment/Plan (1) COPD exacerbation Current Visit: Yes Status: Acute Assessment & Plan: Doing much better. On zithromax and rocephin day #2, and solu-medrol 60mg IV q8h. Will decrease the solumedrol slightly. Advised pt since he already failed outpatient therapy, he will likely need to stay several days on IV medications, and he was agreeable. Code(s): J44.1 - CHRONIC OBSTRUCTIVE PULMONARY DISEASE W (ACUTE) EXACERBATION (2) Hypoxia Current Visit: Yes Status: Resolved Assessment & Plan: On home O2 of 4L NC. Code(s): R09.02 - HYPOXEMIA (3) Pleural effusion Current Visit: Yes Status: Chronic Code(s): J90 - PLEURAL EFFUSION, NOT ELSEWHERE CLASSIFIED (4) Thrombocytopenia Current Visit: Yes Status: Acute Assessment & Plan: Unsure the chronicity. Recheck in a.m. Mild. (5) Diabetes mellitus Current Visit: No Status: Chronic Code(s): E11.9 - TYPE 2 DIABETES MELLITUS WITHOUT COMPLICATIONS (6) Hypertensive heart disease Current Visit: No Status: Chronic Code(s): I11.9 - HYPERTENSIVE HEART DISEASE WITHOUT HEART FAILURE (7) Chronic hypoxemic respiratory failure Current Visit: Yes Status: Chronic
[2020-09-10] MEDS: ROCEPHIN 1 Gm-D5w 50 ml Bag** 1 G/50 ML IVPB IV SCH (09:23)
[2020-09-10] MEDS: Lexapro 10 MG PO SCH (09:23)
[2020-09-10] MEDS: QUESTRAN Light 4 GM Packet PO SCH (09:23)
[2020-09-10] MEDS: ELIQUIS 2.5 MG TABLET PO SCH ×2 (09:23→21:19)
[2020-09-10] MEDS: Klor Con 10 MEQ PO SCH (09:23)
[2020-09-10] MEDS: NYSTOP POWDER 15 GM TOP SCH ×2 (09:23→21:20)
[2020-09-10] MEDS: FEOSOL 325 MG PO SCH ×2 (09:23→21:19)
[2020-09-10] MEDS: Namenda 5 MG PO SCH (09:24)
[2020-09-10] MEDS ORDERED: NYSTATIN 100000 UNIT TOP SCH (10:00)
[2020-09-10] MEDS: Zithromax 500 MG/ 250 ML NaCl Premix 500 MG/250 ML IVPB IV SCH (10:04)
[2020-09-10] MEDS: Aricept 10 MG PO SCH (21:19)
[2020-09-10] MEDS: Lantus Insulin SQ SCH (21:22)
[2020-09-10] MEDS ORDERED: INSULIN GLARGINE HUM REC ANLOG 23 UNIT SQ SCH (22:00)
[2020-09-11] MEDS: solu-MEDROL 125 MG IV SCH ×4 (06:05→23:19)
[2020-09-11] MEDS: DUONEB 0.5-3 MG/3 ml Neb IH SCH ×4 (07:04→19:58)
[2020-09-11] MEDS: PATIENT OWN MEDICATION IH SCH (07:04)
--- NOTE | 2020-09-11 08:08 | PCM.NOTE ---
Date and Time: 09/11/20804 Subjective Assessment: patient reports improvement, feels he is near to his baseline but not totally there yet, still has some minimal cough and wheezing but overall much better Objective Exam General Appearance: no apparent distress Neurologic Exam: alert, oriented x 3, cooperative Respiratory Exam: prolonged expirations, wheezing (minimal wheeze) Cardiovascular Exam: regular rate/rhythm, normal heart sounds Gastrointestinal/Abdomen Exam: soft, No tenderness, No mass Extremity Exam: normal inspection, normal range of motion OBJECTIVE DATA Vital Signs: Vital Signs - 24 hr Temp Pulse Resp BP Pulse Ox 09/11/20 07:25 96.8 F 86 18 127/67 93 L 09/11/20 07:06 86 18 93 L 09/11/20 04:11 97.4 F 90 20 143/67 96 09/11/20 00:03 97.8 F 94 H 20 117/64 95 09/10/20 19:22 97.7 F 97 H 20 123/60 94 L 09/10/20 18:38 96 H 20 95 09/10/20 16:00 97.5 F 96 H 21 122/57 94 L 09/10/20 14:48 93 H 18 93 L 09/10/20 12:00 98.3 F 92 H 19 128/61 97 09/10/20 10:29 96 H 20 95 Pain Assessment - Last Documented Pain Intensity 0 Intake and Output: Intake & Output 09/08/20 09/09/20 09/10/20 09/11/20 11:59 11:59 11:59 11:59 Intake Total 600 1740 Output Total 200 Balance 600 1540 Weight 102.512 kg 102.4 kg 104.5 kg Lab Results: Lab Results-Last 24 Hours 09/10/20 09/10/20 09/10/20 Range/Units 10:00 11:35 16:30 POC Glucometer 330 H 290 H (74 to 106) mg/dL Stool Occult Blood POSITIVE A (NEGATIVE) 09/10/20 09/11/20 Range/Units 20:55 07:07 POC Glucometer 359 H 313 H (74 to 106) mg/dL Stool Occult Blood (NEGATIVE) Radiology Exams: Radiology Procedures Category Date Time Status CHEST 1 VIEW (PORTABLE) Stat Exams 09/09/20 11:26 Completed Assessment/Plan (1) COPD exacerbation Current Visit: Yes Status: Acute Assessment & Plan: improving nicely on IV solu medrol, rocephin and zithromax with nebulizer therapy. failed outpatient therapy prior to admission, suggest continuing current therapy, likely back to [facility] tomorrow Code(s): J44.1 - CHRONIC OBSTRUCTIVE PULMONARY DISEASE W (ACUTE) EXACERBATION (2) Chronic hypoxemic respiratory failure Current Visit: Yes Status: Chronic (3) Diabetes mellitus Current Visit: No Status: Chronic Code(s): E11.9 - TYPE 2 DIABETES MELLITUS WITHOUT COMPLICATIONS
[2020-09-11] MEDS: HUMULIN R SQ PRN ×4 (08:37→21:24)
[2020-09-11] MEDS: Klor Con 10 MEQ PO SCH (10:13)
[2020-09-11] MEDS: ELIQUIS 2.5 MG TABLET PO SCH ×2 (10:13→21:23)
[2020-09-11] MEDS: Namenda 5 MG PO SCH (10:13)
[2020-09-11] MEDS: FEOSOL 325 MG PO SCH ×2 (10:14→21:23)
[2020-09-11] MEDS: NYSTOP POWDER 15 GM TOP SCH ×2 (10:14→21:23)
[2020-09-11] MEDS: Lexapro 10 MG PO SCH (10:16)
[2020-09-11] MEDS: QUESTRAN Light 4 GM Packet PO SCH (10:24)
[2020-09-11] MEDS: ROCEPHIN 1 Gm-D5w 50 ml Bag** 1 G/50 ML IVPB IV SCH (10:25)
[2020-09-11] MEDS: Zithromax 500 MG/ 250 ML NaCl Premix 500 MG/250 ML IVPB IV SCH (11:24)
[2020-09-11] MEDS ORDERED: Sodium Chloride 0.9% 10 ML FLUSH Syringe IV PRN (13:00)
[2020-09-11] MEDS: Aricept 10 MG PO SCH (21:23)
[2020-09-11] MEDS: Lantus Insulin SQ SCH (21:24)
[2020-09-12] MEDS: solu-MEDROL 125 MG IV SCH ×2 (06:07→12:10)
[2020-09-12] MEDS: DUONEB 0.5-3 MG/3 ml Neb IH SCH ×2 (06:18→11:08)
[2020-09-12] MEDS: PATIENT OWN MEDICATION IH SCH (06:21)
--- NOTE | 2020-09-12 08:02 | PCM.DS ---
Discharge Summary Date of Admission: 09/10/20 08:44 Admitting Physician: PASTOR GANN DO Primary Care Provider: [facility] Allergies Allergies Iodinated Contrast Media [IV Dye, Iodine Containing Contrast ] Allergy (Severe, Verified 09/09/20 18:15) Hives iopamidol [From Isovue-128] Allergy (Severe, Verified 09/09/20 18:15) Rash adhesive tape Allergy (Intermediate, Verified 09/09/20 18:15) Blisters Hospital Summary - Hospital Course Hospital Course: patient was admitted with cough, wheezing and shortness of breath. sent to ER from [facility], hx of copd. had recently been on augmentin and medrol marilee but worsened. he is back to baseline after receiving IV steroids, abx and nebulizer therapy. feeling much better at this time. - Vitals & Intake/Output Vital Signs: Vital Signs Temperature 98.2 F 09/12/20 04:00 Pulse Rate 89 09/12/20 06:21 Respiratory Rate 18 09/12/20 06:21 Blood Pressure 136/62 09/12/20 04:00 O2 Sat by Pulse Oximetry 96 09/12/20 06:21 Intake & Output: Intake & Output 09/09/20 09/10/20 09/11/20 09/12/20 11:59 11:59 11:59 11:59 Intake Total 600 1980 2680 Output Total 200 Balance 600 1780 2680 Weight 102.512 kg 102.4 kg 104.5 kg - Lab Result Diagrams: 09/09/20 11:26 09/10/20 04:33 Lab Results-Last 24 Hrs: Lab Results-Last 24 Hours 09/11/20 09/11/20 09/11/20 Range/Units 11:55 16:16 20:55 POC Glucometer 391 H 320 H 308 H (74 to 106) mg/dL 09/12/20 Range/Units 07:00 POC Glucometer 297 H (74 to 106) mg/dL Micro Results-Entire Visit: Microbiology 09/09/20 11:26 Urine Culture - Final Urine, Void NO GROWTH 09/09/20 12:45 Blood Culture - Preliminary Blood NO GROWTH TO DATE 09/09/20 12:18 Blood Culture - Preliminary Blood NO GROWTH TO DATE Accuchecks Date 09/11/20 Date 09/11/20 - Procedures and Test Procedures and Tests throughout Hospitalization: Therapy Orders & Screens 09/09/20 13:50 Respiratory Therapy Assessment DAILY Comment: 09/09/20 13:55 Respiratory MDI UD Comment: 09/09/20 17:48 Oxygen NASAL CANNULA 4 lpm Comment: Diagnosis: COPD exacerbation 09/09/20 18:47 RT Screen per Nursing Assess ONCE Comment: Protocol Order Physician Instructions: Greater than 3 points order RT Admission Screen Reason For Exam: Triggered on Admission Diagnosis: COPD exacerbation Diagnosis: COPD exacerbation Pneumonia: No Home O2: Yes Asthma: Yes CHF: Yes Home CPAP/BIPAP: No Home Nebs/MDI: Yes Total Points: 17 Discharge Exam General Appearance: no apparent distress, alert Respiratory Exam: diminished breath sounds, prolonged expirations, No respiratory distress, No accessory muscle use Cardiovascular Exam: regular rate/rhythm, normal heart sounds Gastrointestinal/Abdomen Exam: soft, No tenderness, No mass Extremity Exam: normal inspection, normal range of motion Skin Exam: normal color, warm, dry Final Diagnosis/Problem List - Final Discharge Diagnosis/Problem (1) COPD exacerbation Current Visit: Yes Status: Acute Code(s): J44.1 - CHRONIC OBSTRUCTIVE PULMONARY DISEASE W (ACUTE) EXACERBATION (2) Chronic hypoxemic respiratory failure Current Visit: Yes Status: Chronic (3) Diabetes mellitus Current Visit: No Status: Chronic Code(s): E11.9 - TYPE 2 DIABETES MELLITUS WITHOUT COMPLICATIONS - Discharge Disposition: Home, Self-Care Condition: Stable Prescriptions: New Prednisone 20 mg [Deltasone 20 mg] 20 mg PO UD #18 tablet Doxycycline Hyclate 100 mg [Vibramycin 100 MG] 100 mg PO BID #10 tab Continue Potassium Chloride [Klor-Con 10] 10 meq PO DAILY Escitalopram Oxalate 10 mg [Lexapro 10 MG] 20 mg PO DAILY Donepezil HCl 10 mg [Aricept 10 MG] 10 mg PO HS Insulin Glargine,Hum.rec.anlog [Basaglar Kwikpen U-100] 23 unit SQ QHS Nystatin 100,000 unit TOP BID Magnesium Hydroxide 30 ml [Milk of Magnesia 30 ml] 30 ml PO UD PRN PRN Reason: Constipation Acetaminophen 325 mg [Tylenol 325 mg] 650 mg PO Q4HPRN PRN PRN Reason: Pain Sodium Phosphate,[place]-Dibasic [Fleet Enema] 133 ml RC UD PRN PRN Reason: Constipation Ferrous Sulfate 325 mg [Feosol 325 mg] 325 mg PO BID Cholestyramine/Aspartame [Cholestyramine Light Packet] 4 gm PO DAILY Memantine HCl 5 mg [Namenda 5 MG] 5 mg PO DAILY Insulin Aspart [Novolog] 100 unit SQ UD Apixaban [Eliquis] 5 mg PO BID Albuterol/Ipratropium 3ml Neb* [DUONEB 0.5-3 MG/3 ml Neb] 1 vial IH BID Albuterol Sulfate [Albuterol Sulfate Hfa] 2 puff IH QID Follow up with: CORIN RAVI [Primary Care Provider] -
[2020-09-12] MEDS: HUMULIN R SQ PRN ×2 (08:10→12:15)
[2020-09-12] MEDS: FEOSOL 325 MG PO SCH (09:49)
[2020-09-12] MEDS: ELIQUIS 2.5 MG TABLET PO SCH (09:49)
[2020-09-12] MEDS: Namenda 5 MG PO SCH (09:49)
[2020-09-12] MEDS: Lexapro 10 MG PO SCH (09:49)
[2020-09-12] MEDS: Klor Con 10 MEQ PO SCH (09:49)
[2020-09-12] MEDS: QUESTRAN Light 4 GM Packet PO SCH (09:52)
[2020-09-12] MEDS: Zithromax 500 MG/ 250 ML NaCl Premix 500 MG/250 ML IVPB IV SCH (09:54)
[2020-09-12] MEDS: ROCEPHIN 1 Gm-D5w 50 ml Bag** 1 G/50 ML IVPB IV SCH (09:54)
[2020-09-12] MEDS: NYSTOP POWDER 15 GM TOP SCH (10:04)
[2020-09-12 11:58] VITALS: BP 141/67; PULSE 101; O2SAT 95
== END 2020-09-12 13:38 | disposition home or self-care (01) | DRG 191 ==
LOC: ED 11:16 → MED SURG 17:14 → OBSVTOIN 09-10 08:44
PROVIDERS: ADMIT Family Medicine; ATTEND Family Medicine
DX: J44.1 Chronic obstructive pulmonary disease with (acute) exacerbation (principal); J96.11 Chronic respiratory failure with hypoxia; J90 Pleural effusion, not elsewhere classified; Z99.81 Dependence on supplemental oxygen; Z79.899 Other long term (current) drug therapy; E11.9 Type 2 diabetes mellitus without complications; E78.00 Pure hypercholesterolemia, unspecified; I11.9 Hypertensive heart disease without heart failure; G47.30 Sleep apnea, unspecified; Z85.038 Personal history of other malignant neoplasm of large intestine; Z79.01 Long term (current) use of anticoagulants; R42 Dizziness and giddiness; R19.7 Diarrhea, unspecified; D69.6 Thrombocytopenia, unspecified
CPT/HCPCS: 0241U; 36000; 36415; 71045; 80053; 81001; 82947; 83036; 83735; 83880; 84484; 85025; 85379; 87040; 87086; 93005; 93041; 93268; 94640; 94760; 96365; 96367; 96374; 99285; G0328; G0378; 82274; J0456; J0696; J1642; J1815; J2930; A9270-GY